=== PATIENT | male | born 1980 | race Caucasian/White ===

== ENCOUNTER 2017-03-08 13:02 | Emergency (ER) | payer SELFPAY | END 2017-03-08 14:00 | disposition home or self-care (01) | DX: S51.812A Laceration without foreign body of left forearm, initial encounter (principal); W29.3XXA Contact with powered garden and outdoor hand tools and machinery, initial encounter; Y92.009 Unspecified place in unspecified non-institutional (private) residence as the place of occurrence of the external cause ==

== ENCOUNTER 2017-03-10 11:06 | Emergency (ER) | payer SELFPAY ==
--- NOTE | 2017-03-10 17:48 | ER ---
ADMIT: 03/10/2017 RM/LOC: ER [facility] MR#: [id number] [place], [place] [id number] [address] [place] [address] Emergency Room Report SEX: M AGE: 36 : 1980 DATE: 03/10/2017 TIME: 1106 hours. Please refer to my T-sheet for complete H and P. HISTORY OF PRESENT ILLNESS: Briefly, the patient is a 36-year-old, who was just seen in the ER for a left wrist laceration from a chain saw. It was sutured here. He has been using his Keflex and tramadol. He is not having pain. REVIEW OF SYSTEMS: His hand is little swollen. He is also concerned about work. PHYSICAL EXAMINATION: vital signs are stable. He is afebrile. Laceration of the left hand of the wound looks well approximated. No evidence of secondary infection. He is neurovascularly intact distally. He has slight swelling of his hand. EMERGENCY DEPARTMENT COURSE: I had a long discussion with him about elevating the hand and a light bandage on it, still early with no signs of cellulitis now but this is a significant injury that does need followup. PLAN: Follow up with Dr. Conley as planned. Return if worse. Continue medications. I gave him off today and tomorrow. Seth Vu MD/ abhil JOB #: [id number] CC: Seth Vu MD, Attending Physician Frederick Conley MD, Family Physician
== END 2017-03-10 12:18 | disposition home or self-care (01) ==
LOC: ER 11:06
DX: S61.512D Laceration without foreign body of left wrist, subsequent encounter (principal); F17.210 Nicotine dependence, cigarettes, uncomplicated